=== PATIENT | female | born 2005 | race Two or more races ===

== ENCOUNTER 2024-02-26 19:45 | Emergency (ER) | payer OTHER ==
[~2024-02-26] VITALS: Ht 165.1 cm; Wt 78.0 kg
[2024-02-26 20:15] VITALS: TEMP 97.7
[2024-02-26] MEDS: IBUPROFEN 600 MG TABLET PO ONE (20:41)
[2024-02-26] MEDS: ACETAMINOPHEN 500 MG TABLET PO ONE (20:41)
[2024-02-26 21:53] VITALS: BP 132/88; PULSE 90; RESP 18; O2SAT 98
== END 2024-02-26 22:07 | disposition home or self-care (01) ==
LOC: EMS 19:45
DX: S63.502A Unspecified sprain of left wrist, initial encounter (principal); W10.9XXA Fall (on) (from) unspecified stairs and steps, initial encounter; Y93.89 Activity, other specified; Y92.89 Other specified places as the place of occurrence of the external cause; Y99.8 Other external cause status
CPT/HCPCS: 99284